=== PATIENT | female | born 1985 | race Caucasian/White ===

== ENCOUNTER 2020-12-02 20:41 | Outpatient (CLI) | payer BC ==
[~2020-12-02] VITALS: Ht 170.2 cm; Wt 151.4 kg
[~2020-12-02 20:41] MED LIST: ATARAX 25MG25 MG/TAB PO; CELEXA40 MG PO; EPIPEN 2-PAK1 MG/ML IM; ESCITALOPRAM PO; FLINTSTONES1 CTB; FLINTSTONES1 CTB PO; GAS-X EXTRA ST125 M1 PO; NORCO 325 MG-7.1 TAB PO; PEPCID 20MG TAB20 MG PO; PHENERGAN25 MG RC; PREDNISONE10 MG; PREDNISONE20 MG PO; SINEQUAN 5050 MG/CAP PO; SYNTHROID0.1 MG/TAB PO; XYAL5 MG PO; ZOFRAN ODT4 MG PO
--- NOTE | 2020-12-02 20:45 | NUR ---
Ambulatory to unit for assessment. Oriented to room, monitor, plan of care. Pt reports abd ' all day and a headache too" Pt denies taking tylnenol today.
--- NOTE | 2020-12-02 21:00 | NUR ---
While in [employer] BP with large cuff on L upper arm 148/84, BP with small cuff on L lower arm 144/92 Turned to LW BP with small cuff on lower arm 129/76. Difficulty maintaining FHR tracing in LW r/t BMI 52.
[2020-12-02 21:15] VITALS: TEMP 98.8
[2020-12-02 21:40] VITALS: BP 131/72; PULSE 94
[2020-12-02 22:10] VITALS: BP 130/83; PULSE 88
--- NOTE | 2020-12-02 22:30 | NUR ---
Discharge instructions reviewed with pt. Questions invited and answered. Ambulatory off unit
== END 2020-12-02 22:30 | disposition home or self-care (01) ==
LOC: LDR 20:41 → LDRO 20:41
DX: O26.893 Other specified pregnancy related conditions, third trimester (principal); R10.9 Unspecified abdominal pain; R51.9 Headache, unspecified; Z3A.36 36 weeks gestation of pregnancy
CPT/HCPCS: OP

== ENCOUNTER 2020-12-06 16:58 | Emergency (ER) | payer BC ==
[~2020-12-06] VITALS: Ht 175.3 cm; Wt 154.5 kg
[2020-12-06 18:01] LABS: COLLECTION METHOD CLEAN CATCH
[2020-12-06 18:12] LABS: BASO # 0.1 (0.0-0.2); BASO % 0.5 % (0.0-2.0); EOS # 0.1 (0.0-0.7); EOS % 0.5 % (0-4.0); GRAN # 9.5 (1.4-6.5); GRAN % 73.4 % (42.2-75.2); HEMOGLOBIN 10.3 g/dl (12.5-16.0); LYMPH # 2.3 (1.2-3.4); LYMPH % 17.6 % (20.0-51.0); MEAN CELL VOLUME 80 fl (80.0-100.0); MEAN CORPUSCULAR HEMOGLOBIN 25 pg (27.0-31.0); MEAN CORPUSCULAR HGB CONC 31 g/dl (33.0-37.0); MONO # 0.9 (0.1-0.6); PLATELET COUNT 390 K/mm3 (130-400); RED BLOOD COUNT 4.15 M/mm3 (4.10-5.30); REDCELL DISTRIBUTION WIDTH-CV 15.2 % (11.5-14.5)
[2020-12-06 18:14] LABS: MUCOUS Present /lpf; PH 6 (5-8); URINE APPEARANCE Hazy; URINE BACTERIA Rare /hpf; URINE BILIRUBIN Negative (NEGATIVE); URINE BLOOD Negative (NEGATIVE); URINE COLOR Yellow; URINE GLUCOSE Negative (NEGATIVE); URINE KETONE Negative (NEGATIVE); URINE LEUKOCYTE ESTERASE Trace (NEGATIVE); URINE NITRATE Negative (NEGATIVE); URINE PROTEIN(semi-quant) 1+ (NEGATIVE); URINE UROBILINOGEN Negative (NEGATIVE)
[2020-12-06 18:25] LABS: ALBUMIN 3.4 gm/dL (3.5-5.0); BILIRUBIN,TOTAL 0.2 mg/dL (0.0-1.0); CALCIUM 8.6 mg/dL (8.4-10.2); CREATININE, serum 0.53 (0.52-1.25); TOTAL PROTEIN 6.9 gm/dL (6.4-8.2)
[2020-12-06] MEDS ORDERED: CEPHALEXIN500 M1 PO (18:36)
[2020-12-06 20:20] VITALS: BP 134/70; PULSE 89; TEMP 98.1
== END 2020-12-06 20:20 | disposition home or self-care (01) ==
LOC: COL.ER 16:58
PROVIDERS: Emergency Medicine
DX: O21.2 Late vomiting of pregnancy (principal); O26.893 Other specified pregnancy related conditions, third trimester; G89.18 Other acute postprocedural pain; O99.283 Endocrine, nutritional and metabolic diseases complicating pregnancy, third trimester; E03.9 Hypothyroidism, unspecified; O99.333 Smoking (tobacco) complicating pregnancy, third trimester; F17.210 Nicotine dependence, cigarettes, uncomplicated; Z3A.36 36 weeks gestation of pregnancy; Z20.822 Contact with and (suspected) exposure to COVID-19; Z79.890 Hormone replacement therapy
CPT/HCPCS: J7030

== ENCOUNTER 2020-12-17 20:05 | Outpatient (CLI) | payer BC ==
[~2020-12-17] VITALS: Ht 170.2 cm; Wt 154.5 kg
[~2020-12-17 20:05] MED LIST changes: +CEPHALEXIN500 M1 PO
--- NOTE | 2020-12-17 20:20 | NUR ---
2019- PATIENT AND SPOUSE AMBULATORY TO THE UNIT. PATIENT IS DR. JACOBS PATIENT AND IS AT 38.1 WHO PRESENTS WITH CONTRACTION PAIN. PATIENT REPORTS GFM, NO LOF, NO BLEEDING AND CONTRACTIONS THAT ARE ABOUT 15-20 MINUTES APART AND PAINFUL - THAT STARTED AROUND 1600 TODAY. 2023- EFM AND TOCO ON AND TRACING. VITALS TAKEN, ASSESSMENT COMPLETED. PLAN OF CARE FOR THE EVENING DISCUSSED. PATIENT VERBALIZED UNDERSTANDING WITH NO FURTHER QUESTIONS. 2034- SVE 3.
[2020-12-17 20:30] VITALS: BP 128/83; PULSE 121; TEMP 98.3
[2020-12-17 21:41] VITALS: BP 128/74; PULSE 95
== END 2020-12-17 22:00 | disposition home or self-care (01) ==
LOC: LDRO 20:05
DX: O62.9 Abnormality of forces of labor, unspecified (principal); Z3A.38 38 weeks gestation of pregnancy; Z86.16 Personal history of COVID-19

== ENCOUNTER → 2020-12-26 | Outpatient (CLI) | payer BC ==
[~2020-12-26] MED LIST changes: +SYNTHROID0.075 MG/T
== END ==
LOC: ZCOL.LAB 06:45
DX: Z20.822 Contact with and (suspected) exposure to COVID-19 (principal)

== ENCOUNTER 2020-12-27 06:06 | Inpatient (IN) | payer BC ==
[~2020-12-27] VITALS: Ht 170.2 cm; Wt 155.9 kg
[2020-12-27] VITALS (47 sets, daily range): BP systolic 101–174; BP diastolic 55–93; PULSE 62–115; TEMP 97.9–98.8
[~2020-12-27 06:06] MED LIST changes: -SYNTHROID0.075 MG/T
[2020-12-27 07:26] LABS: BASO # 0.1 (0.0-0.2); BASO % 0.5 % (0.0-2.0); EOS # 0.1 (0.0-0.7); EOS % 0.7 % (0-4.0); GRAN # 8.5 (1.4-6.5); GRAN % 72.3 % (42.2-75.2); LYMPH # 2.3 (1.2-3.4); LYMPH % 19.7 % (20.0-51.0); MEAN CELL VOLUME 77 fl (80.0-100.0); MEAN CORPUSCULAR HGB CONC 32 g/dl (33.0-37.0); MEAN PLATELET VOLUME 11.1 fl (7.4-10.4); MONO # 0.7 (0.1-0.6); MONO % 5.9 % (1.7-9.3); PLATELET COUNT 422 K/mm3 (130-400); RED BLOOD COUNT 4.08 M/mm3 (4.10-5.30); REDCELL DISTRIBUTION WIDTH-CV 15.8 % (11.5-14.5)
[2020-12-27 07:27] LABS: HEMATOCRIT 31.3 % (37.0-47.0); HEMOGLOBIN 9.9 g/dl (12.5-16.0); MEAN CORPUSCULAR HEMOGLOBIN 24 pg (27.0-31.0)
[2020-12-27] MEDS ORDERED: SYNTHROID0.075 MG/T (07:45)
[2020-12-27 08:18] LABS: COLLECTION METHOD CLEAN CATCH
[2020-12-27 08:27] LABS: MUCOUS Present /lpf; PH 6 (5-8); SQUAMOUS EPITHELIAL 0-2 /hpf; URINE APPEARANCE Hazy; URINE BACTERIA Rare /hpf; URINE BILIRUBIN Negative (NEGATIVE); URINE BLOOD Negative (NEGATIVE); URINE COLOR Yellow; URINE GLUCOSE Negative (NEGATIVE); URINE KETONE Negative (NEGATIVE); URINE LEUKOCYTE ESTERASE Negative (NEGATIVE); URINE NITRATE Negative (NEGATIVE); URINE PROTEIN(semi-quant) Negative (NEGATIVE); URINE RBC 0-2 /hpf; URINE UROBILINOGEN Negative (NEGATIVE); URINE WBC 0-2 /hpf
[2020-12-27 08:33] LABS: ALBUMIN 3.4 gm/dL (3.5-5.0); BILIRUBIN,TOTAL 0.1 mg/dL (0.0-1.0); CALCIUM 8.8 mg/dL (8.4-10.2); CREATININE, serum 0.58 (0.52-1.25); POTASSIUM 4.3 mmol/L (3.4-5.0)
[2020-12-27 09:33] LABS: THYROID STIMULATING HORMONE 3.101 uIU/mL (0.350-4.940)
[2020-12-28] VITALS: BP 126/66; PULSE 61; TEMP 98.3
[2020-12-28 04:24] VITALS: BP 126/71; PULSE 80; TEMP 98
[2020-12-28 07:45] VITALS: BP 137/84; PULSE 83; TEMP 98.5
[2020-12-28 07:49] LABS: HEMATOCRIT 30.7 % (37.0-47.0); HEMOGLOBIN 9.6 g/dl (12.5-16.0)
[2020-12-28 17:00] VITALS: BP 138/73; PULSE 66; TEMP 97.6
== END 2020-12-28 18:40 | disposition home or self-care (01) | DRG 807 ==
LOC: LDR 06:06 → OB 19:20
PROVIDERS: ADMIT Obstetrics & Gynecology
PROC: 10E0XZZ Delivery of Products of Conception, External Approach (ICD-10-PCS; principal; 2020-12-27)
PROC: 10907ZC Drainage of Amniotic Fluid, Therapeutic from Products of Conception, Via Natural or Artificial Opening (ICD-10-PCS; 2020-12-27)
DX: O13.4 Gestational [pregnancy-induced] hypertension without significant proteinuria, complicating childbirth (principal); Z37.0 Single live birth; D64.9 Anemia, unspecified; O99.02 Anemia complicating childbirth; O99.284 Endocrine, nutritional and metabolic diseases complicating childbirth; E66.9 Obesity, unspecified; E03.9 Hypothyroidism, unspecified; Z3A.39 39 weeks gestation of pregnancy; Z20.822 Contact with and (suspected) exposure to COVID-19
CPT/HCPCS: J2590; J7120

== ENCOUNTER 2022-05-26 13:38 | Emergency (ER) | payer MEDICAID ==
[~2022-05-26] VITALS: Ht 175.3 cm; Wt 145.0 kg
[~2022-05-26 13:38] MED LIST changes: +SYNTHROID0.075 MG/T
[2022-05-26 13:43] VITALS: BP 145/97; TEMP 97.9
[2022-05-26 14:44] LABS: COLLECTION METHOD CLEAN CATCH
[2022-05-26 15:03] LABS: URINE APPEARANCE Cloudy (CLEAR/HAZY); URINE COLOR Yellow (YELLOW)
[2022-05-26 15:04] LABS: URINE BLOOD 2+ (NEGATIVE); URINE GLUCOSE Negative (NEGATIVE); URINE KETONE Negative (NEGATIVE); URINE NITRATE Negative (NEGATIVE); URINE PROTEIN(semi-quant) Negative (NEGATIVE); URINE UROBILINOGEN 0.2 E.U/dL (0.2-1.0)
[2022-05-26 15:09] LABS: SQUAMOUS EPITHELIAL 0-2 /hpf (0-10); URINE BACTERIA Rare /hpf (NONE SEEN); URINE RBC 0-2 /hpf (0-2); URINE WBC 0-2 /hpf (0-2)
[2022-05-26] MEDS ORDERED: CEPHALEXIN500 M1 PO (15:43)
[2022-05-26 15:50] VITALS: PULSE 86
== END 2022-05-26 15:50 | disposition home or self-care (01) ==
LOC: COL.ER 13:38
PROVIDERS: Emergency Medicine
DX: O20.9 Hemorrhage in early pregnancy, unspecified (principal); Z3A.08 8 weeks gestation of pregnancy

== ENCOUNTER 2023-01-11 10:25 | Outpatient (CLI) | payer MEDICAID ==
[~2023-01-11] VITALS: Ht 170.2 cm; Wt 147.7 kg
[2023-01-11 10:30] VITALS: BP 124/61; PULSE 76; TEMP 97.8
--- NOTE | 2023-01-11 10:44 | NUR ---
Pt presents ambulatory to unit with mother and spouse at 0805. Pt changes into gown, EFM explained and placed. Pt reports her water broke about 0630, Mariann D to room to assess, copious amounts of clear fluid noted. Pt kristie on monitor, reports contractions have been going on for the last 2 days. Per Mariann, implanted deviced noticed on hip, pt states this is a spinal stimulator. Pt also reports she is GDM, diet controlled, and has history of gastric bypass with band. Pt denies history of marijuana use, however records state use for last 13 years and positive test in office in early . UDS ordered. Pt also reports she is current every day smoker, about 5-6 cigarettes/day. Pt denies vaginal bleeding, reports good movement. 0850 - Dr. Koenig and Paola Flannery CRNA to bedside to discuss pt history, examine pt back. 0915 - SVE per this RN, /-4 0930 _ IV started in RF, LR started per protocol.
[2023-01-11] MEDS ORDERED: ASPIRIN 81M81 MG/TA2 (11:21)
[2023-01-11 11:30] VITALS: PULSE 100
--- NOTE | 2023-01-11 11:55 | NUR ---
1030 PATIENT HERE FROM WORK COMPLAINING OF CONTRACTIONS THIS MORNING. EFM ON FHT 140 BABY VERY ACTIVE. 23 WEEKS GESTATION. HARD TO KEEP FHT ON AND DUE TO OBESITY. ASSESSMENT COMPLETED. ATTEMPT TO START IV BUT UNABLE AND PATIENT WANTS TO JUST PO HYDRATE. LAB CALLED FOR ORDERS. PATIENT DENIES OTHER NEEDS AT THIS TIME.
[2023-01-11 11:58] LABS: COLLECTION METHOD CLEAN CATCH
[2023-01-11 12:01] LABS: BASO # 0.1 K/mm3 (0.0-0.2); BASO % 0.5 % (0.0-2.0); EOS # 0.1 K/mm3 (0.0-0.7); EOS % 0.9 % (0.0-4.0); GRAN # 7.8 K/mm3 (1.4-6.5); HEMOGLOBIN 11.3 g/dl (12.5-16.0); LYMPH # 2.1 K/mm3 (1.2-3.4); LYMPH % 19.7 % (20.0-51.0); MEAN CELL VOLUME 83 fl (80.0-100.0); MEAN CORPUSCULAR HEMOGLOBIN 27 pg (27-31); MEAN CORPUSCULAR HGB CONC 32 g/dl (33.0-37.0); MEAN PLATELET VOLUME 11.7 fl (7.4-10.4); MONO # 0.7 K/mm3 (0.1-0.6); MONO % 6.4 % (1.7-9.3); PLATELET COUNT 339 K/mm3 (130-400); RED BLOOD COUNT 4.25 M/mm3 (4.10-5.30); REDCELL DISTRIBUTION WIDTH-CV 14.8 % (11.5-14.5)
[2023-01-11 12:04] LABS: MUCOUS Present (NOT PRESENT); SQUAMOUS EPITHELIAL 0-2 /hpf (0-10); URINE BACTERIA Rare /hpf (NONE SEEN); URINE RBC 0-2 /hpf (0-2); URINE WBC 0-2 /hpf (0-2)
[2023-01-11 12:12] LABS: URINE APPEARANCE Clear (CLEAR/HAZY); URINE BLOOD Negative (NEGATIVE); URINE COLOR Yellow (YELLOW); URINE GLUCOSE Negative (NEGATIVE); URINE KETONE 1+ (NEGATIVE); URINE NITRATE Negative (NEGATIVE); URINE PROTEIN(semi-quant) Negative (NEGATIVE)
[2023-01-11 12:14] LABS: HEMATOCRIT 35.4 % (37.0-47.0)
--- NOTE | 2023-01-11 12:14 | NUR ---
1140 NO CHANGES TO SVE /-3. NO CONTRACTIONS ON MONITOR. FHT [address] WARREN GAVE ORDERS TO AK EF AT THIS TIME. WAITING FOR LAB RESULTS.
[2023-01-11 12:21] LABS: ALBUMIN 2.9 gm/dL (3.5-5.0); BILIRUBIN,TOTAL 0.2 mg/dL (0.2-1.2); CALCIUM 8.8 mg/dL (8.4-10.2); CREATININE, serum 0.6 mg/dL (0.57-1.11); POTASSIUM 3.7 mmol/L (3.5-4.5); TOTAL PROTEIN 7.2 gm/dL (6.2-8.1)
[2023-01-11 12:34] VITALS: BP 104/68; PULSE 102
--- NOTE | 2023-01-11 12:36 | NUR ---
7721 NO CHANGES NOTED. ALL LABS REVIEWED WITH DR WARREN AND ORDERS TO DISMISS TO HOME. ALL DISCHARGE INSTRUCTIONS GIVEN TO PATIENT AND VERBAL UNDERSTANDING. DENIES NEEDS. DISMISSED TO HOME AT THIS TIME
== END 2023-01-11 12:39 | disposition home or self-care (01) ==
LOC: LDRO 10:25 → LDR 10:41 → LDRO 10:41 → LDR 10:41 → LDRO 12:39 → LDR 12:39
PROVIDERS: Obstetrics & Gynecology
DX: O47.02 False labor before 37 completed weeks of gestation, second trimester (principal); Z3A.23 23 weeks gestation of pregnancy
CPT/HCPCS: OP

== ENCOUNTER 2023-04-09 17:02 | Outpatient (CLI) | payer MEDICAID ==
[~2023-04-09] VITALS: Ht 170.2 cm; Wt 160.0 kg
[~2023-04-09 17:02] MED LIST changes: +ASPIRIN 81M81 MG/TA2; +CIPRO HC OTIC S10 ML OT; +PRENATAL; -SYNTHROID0.075 MG/T; +SYNTHROID0.075 MG/T PO
--- NOTE | 2023-04-09 17:10 | NUR ---
[id number] arrives on unit for efm and labs. Ambulatory to ldr5 with self. EFM applied. VS obtained. Assessment completed. 1730Phlebotomist at bedside, lab draw attempt x2; unsuccessful. Pt tearful and declines further attempts. Dr. Fraga updated on pt. See physician notification. 1750Discharge instructions reviewed with pt who verbalizes understanding. Ambulatory off unit.
[2023-04-09 17:15] VITALS: BP 131/76; PULSE 82; TEMP 97.8
[2023-04-09] MEDS ORDERED: SYNTHROID0.05 MG/TA PO (17:27)
[2023-04-09] MEDS ORDERED: SLOW FE137 M1 PO (17:27)
[2023-04-09 17:33] VITALS: BP 143/81; PULSE 85
== END 2023-04-09 17:50 | disposition home or self-care (01) ==
LOC: LDRO 17:02
DX: Z34.83 Encounter for supervision of other normal pregnancy, third trimester (principal); Z3A.36 36 weeks gestation of pregnancy

== ENCOUNTER 2023-04-30 06:23 | Inpatient (IN) | payer MEDICAID ==
[~2023-04-30] VITALS: Ht 170.2 cm; Wt 165.5 kg
[2023-04-30] VITALS (55 sets, daily range): BP systolic 105–158; BP diastolic 23–82; PULSE 68–112; TEMP 98–98.3
[~2023-04-30 06:23] MED LIST changes: +SLOW FE137 M1 PO; +SYNTHROID0.05 MG/TA PO
[2023-04-30] MEDS ORDERED: TYLENOL W/COD1 UDTAB PO (06:58)
[2023-04-30] MEDS ORDERED: AMOXICILLIN 25250 MG PO (06:59)
[2023-04-30 07:54] LABS: BASO % 0.4 % (0.0-2.0); EOS # 0.1 K/mm3 (0.0-0.7); EOS % 0.9 % (0.0-4.0); GRAN % 71.4 % (42.2-75.2); LYMPH # 1.9 K/mm3 (1.2-3.4); LYMPH % 18.9 % (20.0-51.0); MEAN CELL VOLUME 80 fl (80.0-100.0); MEAN CORPUSCULAR HGB CONC 31 g/dl (33.0-37.0); MEAN PLATELET VOLUME 11.3 fl (7.4-10.4); MONO # 0.8 K/mm3 (0.1-0.6); MONO % 7.8 % (1.7-9.3); PLATELET COUNT 338 K/mm3 (130-400); RED BLOOD COUNT 3.76 M/mm3 (4.10-5.30)
[2023-04-30 07:59] LABS: HEMATOCRIT 29.9 % (37.0-47.0); HEMOGLOBIN 9.4 g/dl (12.5-16.0); MEAN CORPUSCULAR HEMOGLOBIN 25 pg (27-31)
--- NOTE | 2023-04-30 12:29 | NUR ---
PATIENT REQUESTS EPIDURAL AT 1110. JESSICA ON UNIT AND BEDSIDE AT 1118. PATIENT TO BR. LR BOLUS INFUSING. O2 MONITOR ON. PATIENT IN SITTIN POSITION WITH PILLOW. JESSICA ATTEMPTED TO PUT EPIDURAL IN BUT PATIENT IN A LOT OF PAIN, EXTRA NUMBING MEDICINE AND LONGER NEEDLE REQUIRED. PATIENT REQUESTS A BREAK AT 1135. BABY ON MONITOR AT DURING BREAK. AT 1150 2ND ATTEMPT STARTED WITH A SUCCESSFUL PLACEMENT [id number]. TEST DOSE AT THAT TIME. PATIENT TOLERATED BETTER AND WAS THEN PUT INTO A WEDGE LEFT POSITION. BABY BACK ON MONITOR. VSS. PATIENT HAVING SOME RELIEF. WILL CONTINUE TO MONITOR.
[2023-04-30 15:12] LABS: COLLECTION METHOD IN
[2023-04-30 15:39] LABS: PH 6.5 (5.0-8.5); URINE APPEARANCE Clear (CLEAR/HAZY); URINE COLOR Yellow (YELLOW); URINE GLUCOSE Negative (NEGATIVE); URINE KETONE TRACE (NEGATIVE); URINE PROTEIN(semi-quant) Negative (NEGATIVE)
[2023-04-30 15:40] LABS: MUCOUS Present (NOT PRESENT); SQUAMOUS EPITHELIAL 0-2 /hpf (0-10); URINE BACTERIA Rare /hpf (NONE SEEN); URINE BLOOD Negative (NEGATIVE); URINE NITRATE Negative (NEGATIVE); URINE RBC 0-2 /hpf (0-2); URINE WBC 0-2 /hpf (0-2)
--- NOTE | 2023-04-30 18:20 | NUR ---
REPORT RCVD FROM MAKI COULTER. THE PATIENT IS CURRENTLY ON 24MU/HR PITOCIN, RUNNING LR AT A SLOW CONTINUOUS RATE. IV PATENT WITH NO REDNESS, SWELLING OR STREAKING. THE PATIENT DENIES ANY PAIN AT THIS TIME. SHE DOES STATE THAT SHE IS TIRED AND READY FOR THIS PROCESS TO BE OVER. THIS RN REASSURED HER THAT THINGS ARE GOING WELL AND SHE IS SO CLOSE TO BEING DONE. REVIEWED PLAN OF CARE. PT VERBALIZED UNDERSTANDING.
--- NOTE | 2023-04-30 21:39 | NUR ---
AT 2104, PT IS COMPLETE, NOTIFIED AT 2106. 2117: AT BEDSIDE, PREPPING ROOM AND PATIENT FOR DELIVERY. 2118: GOWNED AND GLOVED. 2121: PT BEGINS PUSHING WITH . 2132: OF VIABLE MALE INFANT. INFANT STIMULATED PER , INFANT PLACED ON MATERNAL ABDOMEN. CORD CLAMPED X2 PER AND CORD CUT BY SISTER OF THE PATIENT. INFANT IMMEDIATELY TAKEN TO WARMER PER NURSERY RN, MAKI FREEMAN. CORD BLOOD AND CORD GASSES OBTAINED AT THIS TIME PER AND TAKEN TO LAB/RT. PITOCIN STOPPED PER HOSPITAL POLICY. 2138: OF INTACT PLACENTA. PITOCIN STARTED AT 333MU/HR PER HOSPITAL PROTOCOL. ASSESSMENT OF PATIENT PER , PT INTACT AND NO REPAIR IS NEEDED. CLEANED UP THE PATIENT AND RESPOSITIONED TO A SUPINE POSITION WITH PAD AND ICE PACK TO THE PERINEUM. FUNDAL MASSAGE PROVIDES FIRM UTERINE TONE AND SCANT LOCHIA. 2144: RECOVERY VITALS START AT THIS TIME. NO OTHER CONCERNS REGARDING THE PATIENT AT THE PRESENT TIME.
[2023-05-01 07:03] LABS: HEMATOCRIT 27.7 % (37.0-47.0)
[2023-05-01 08:10] VITALS: BP 127/74; PULSE 81; TEMP 97.9
--- NOTE | 2023-05-01 08:45 | NUR ---
Initial visit; Family resting, V Belt Finisher left card offering congratulations and God's blessings for the of their son and information regarding the availability of spiritual care at our hospital.
[2023-05-01] MEDS ORDERED: IBU600 MG PO (12:15)
[2023-05-01 16:30] VITALS: BP 127/72; PULSE 82; TEMP 98.6
[2023-05-01 19:28] VITALS: BP 138/72; PULSE 86; TEMP 97.8
[2023-05-02 08:15] VITALS: BP 140/71; PULSE 86; TEMP 98.1
[2023-05-02] MEDS ORDERED: FERROUS SU325 MG/TAB PO (09:07)
[2023-05-02] MEDS ORDERED: TYLENOL 500MG500 MG PO (09:07)
== END 2023-05-02 10:00 | disposition home or self-care (01) | DRG 807 ==
LOC: OB 06:23 → LDR 06:23 → OB 13:59
PROVIDERS: ADMIT Obstetrics & Gynecology
PROC: 10E0XZZ Delivery of Products of Conception, External Approach (ICD-10-PCS; principal; 2023-04-30)
PROC: 3E033VJ Introduction of Other Hormone into Peripheral Vein, Percutaneous Approach (ICD-10-PCS; 2023-04-30)
PROC: 10907ZC Drainage of Amniotic Fluid, Therapeutic from Products of Conception, Via Natural or Artificial Opening (ICD-10-PCS; 2023-04-30)
DX: O99.824 Streptococcus B carrier state complicating childbirth (principal); Z37.0 Single live birth; Z3A.39 39 weeks gestation of pregnancy; O99.214 Obesity complicating childbirth; E55.9 Vitamin D deficiency, unspecified; O99.284 Endocrine, nutritional and metabolic diseases complicating childbirth; L73.2 Hidradenitis suppurativa; O99.72 Diseases of the skin and subcutaneous tissue complicating childbirth; O99.02 Anemia complicating childbirth; O77.0 Labor and delivery complicated by meconium in amniotic fluid; D64.9 Anemia, unspecified; Z86.16 Personal history of COVID-19; Z87.440 Personal history of urinary (tract) infections
CPT/HCPCS: J2540; J2590; J2795; J7120